=== PATIENT | female | born 1990 | race Asian ===

== ENCOUNTER 2022-06-12 01:51 | Inpatient (IN) ==
[2022-06-12] MEDS ORDERED: LIDOCAINE 1% LOCAL 20 ML VIAL INFIL PRN (02:34)
[2022-06-12] MEDS ORDERED: LACTATED RINGER'S 1,000 ML IV PRN (02:34)
[2022-06-12] MEDS ORDERED: OXYTOCIN 30 UNITS/500 ML BAG IV PRN (02:34)
[2022-06-12 03:25] LABS: Hematocrit (blood only) 36.6 % (37.0-47.0); Hemoglobin 12.2 g/dl (12.0-16.0); Mean Corpuscular Hemoglobin 31.5 pg (25.0-34.0); Mean Corpuscular Hgb Conc 33.3 g/dL (32.0-36.0); Mean Corpuscular Volume 94.6 fL (80.0-100.0); Mean Platelet Volume 9.6 fL (9.4-12.4); Platelet Count 249 K/uL (130-400); RDW Coefficient of Variation 14.6 % (11.5-14.5); RDW Standard Deviation 50.5 fL (36.4-46.3); Red Blood Count 3.87 M/uL (4.20-5.40); White Blood Count 11.03 K/ul (4.8-10.8)
[2022-06-12] MEDS ORDERED: ePHEDrine sulfate 50 MG/ML AMP ONE (03:29)
[2022-06-12] MEDS ORDERED: fentaNYL citrate PF 100 MCG/2 ML VIAL ONE (03:30)
[2022-06-12] MEDS ORDERED: LIDOCAINE 2%/EPINEPHRINE 1:200,000 20 ML PF ONE (03:30)
[2022-06-12] MEDS ORDERED: SODIUM CHLORIDE 0.9% PF INJ 10 ML VIAL ONE (03:30)
[2022-06-12] MEDS ORDERED: BUPIVACAINE 0.25% PF 30 ML VIAL ONE (03:30)
[2022-06-12] MEDS ORDERED: fentaNYL 2MCG/ML ROPIVACAINE 1.25MG/ML 100 ML BAG EPI ONE (03:30)
[2022-06-12] MEDS ORDERED: ONDANSETRON INJ 2 MG/ML 2 ML VIAL IV PRN (03:51)
[2022-06-12] MEDS ORDERED: diphenhydrAMINE 50 MG/ML VIAL IV PRN (03:51)
[2022-06-12] MEDS ORDERED: NALOXONE HCL 1 MG in SODIUM CHLORIDE 0.9% 1000ML 1,000 ML IV PRN (03:51)
[2022-06-12] MEDS ORDERED: NALOXONE HCL 0.4 MG/1 ML VIAL/CARP IV PRN (03:51)
[2022-06-12] MEDS ORDERED: NALBUPHINE HCL INJ 10 MG/ML AMP IV PRN (03:51)
[2022-06-12] MEDS ORDERED: fentaNYL 2MCG/ML ROPIVACAINE 1.25MG/ML 100 ML BAG EPI PRN (03:51)
[2022-06-12] MEDS ORDERED: ePHEDrine sulfate 50 MG/ML AMP IV PRN (03:51)
--- NOTE | 2022-06-12 03:51 | Anesthesiology Consultation ---
Date of Service June 12, 2022 Assessment & Plan ASA ASA2 Proposed Anesthesia Anesthesia Type: Labor Epidural Risk / Benefits Reviewed With: PT / POA / Parent / Guardian, Accepts Plan and Informed Consent Obtained History Height/Weight Height: 5 ft 5 in Weight: 63.503 kg Allergies Allergy/AdvReac Type Severity Reaction Status Date / Time No Known Allergies Allergy Verified 06/05/22 09:10 Medications Home Medications Medication Instructions Recorded Confirmed Last Taken prenat.vits,gary,mby-esao-frfnh 1 tab PO DAILY 11/21/21 06/12/22 Unknown Active Medications Generic Name Dose Route Start Last Admin Trade Name Freq PRN Reason Stop Dose Admin Lactated Ringer's 1,000 mls @ 125 mls/hr 06/12/22 02:34 06/12/22 03:40 Lr IV 06/14/22 02:33 125 mls/hr .Q8H PRN Infusion L&D Protocol Protocol Ropivacaine 100 ml 06/12/22 03:51 06/12/22 04:10 Fentanyl 2mcg/Ml Ropivacaine 1.25mg/Ml 100 Ml Bag EPI 06/13/22 03:50 100 ml PRN PRN Administration Pain R/T Labor Protocol Past Medical History Medical History Varicella vaccination Exercise / Class Metabolic Activity II 4-5 Yardwork/Stairs/Walk up hill Past Family History Family History Denies family history of Ovarian cancer Breast cancer Colorectal cancer Past Surgical History Surgical History No history of previous surgery Past Anesthesia History No Hx of Anesthesia Complications and No Family Hx of Anesthesia Complications History of PONV No Hx of PONV and No Hx of Motion Sickness Social History Smoking Status: Never smoker Hx Alcohol Use: No Hx Substance Use: No Review of Systems denies fever/cough/ colds/ chest pain/ SOB/ CARMEN denies CARMEN Physical Exam Vital Signs Last Vital Signs Temp 36.8 C 06/12/22 04:11 Pulse 77 06/12/22 04:16 Resp 18 06/12/22 04:11 BP 106/72 06/12/22 04:16 Pulse Ox 98 06/12/22 04:16 ENMT Mouth: no TMJ abnormality and no dentition abnormality Thyromental Distance: > or= 3.5 Finger Breadths Mallampati Class: II Neck neck extension not limited Respiratory normal respiratory effort; no respiratory distress Auscultation: lungs clear to auscultation bilaterally Cardiovascular Rate/Rhythm: regular rate and regular rhythm Neurologic moves all extremities Psychiatric Orientation: alert and oriented x 3 Testing Laboratory Results 06/12/22 02:54
--- NOTE | 2022-06-12 05:19 | Delivery Summary ---
Vaginal Delivery Summary Date of Service June 12, 2022 Vaginal Delivery Summary DIAGNOSES: 1. Harrell intrauterine at 39w3d gestation. 2. Spontaneous onset of labor. 3. Group B Streptococcus Neg. 4. Shoulder Dystocia PROCEDURE: Spontaneous vaginal delivery without laceration, requiring Serjio, Suprapubic pressure, Delivery of posterior shoulder and Wood's Screw maneuvers SURGEON: Kristina Wasserman MD. BILINGUAL TEACHER: None. ESTIMATED BLOOD LOSS: 300 mL. COMPLICATIONS: None. PLACENTA: Spontaneous and intact with a 3-vessel cord. DISPOSITION: Stable to labor and delivery. DESCRIPTION: The patient pushed well and brought the head to in DOA position. The infant's head was allowed to deliver with contraction force and no further active pushing, with the perineum protected during this time. There was a shoulder cord but no nuchal cord. The right shoulder was anterior. Once the head delivered, impaction of the shoulder was evident and no further downward movement was achieved. A shoulder dystocia was identified and help was requested to the bedside. Serjio' position was employed, and suprapubic pressure was applied from the posterior aspect of the anterior shoulder, however the shoulder was still unable to be delivered. The patient was asked to relax while I placed a hand into the posterior vagina to attempt to deliver the posterior shoulder. Movement of the posterior shoulder towards delivery did occur, but the 's body was also noted to tend to rotate in the canal during this effort. Following that motion, pressure was applied on the anterior aspect of the posterior shoulder/arm/chest to encourage the spinning, creating the Wood's Screw maneuver. This resulted in delivery of the posterior shoulder, and once the infant had rotated 180 degrees, the "new" posterior shoulder also delivered, followed by the remainder of the body. The infant was placed on the maternal abdomen. It was vigorous and moving all extremities, and making respiratory efforts. The cord was doubly clamped by the MD and then cut by the FOB. The placenta delivered spontaneously and was noted to be intact and with a 3VC. The cervix, vagina and perineum were examined and were found to be without defect requiring repair. The fundus was firm and lochia minimal immediately after delivery. [facility] Vaginal Delivery Charge Vaginal Delivery Codes: 40896 global code for the antepartum, delivery, and post-
[2022-06-12] MEDS ORDERED: HYDROCORTISONE ACETATE 25 MG SUPP PR PRN (07:13)
[2022-06-12] MEDS ORDERED: DIPHTHERIA/TETANUS/PERTUSSIS 0.5mL SYR/VIAL (Age 7+yrs) IM ONE (07:13)
[2022-06-12] MEDS ORDERED: BENZOCAINE 20% AER SPR 82.5 GM CAN EXT PRN (07:13)
[2022-06-12] MEDS ORDERED: oxyCODONE/ACETAMINOPHEN 5mg/325mg TAB PO PRN (07:13)
[2022-06-12] MEDS ORDERED: ACETAMINOPHEN 325 MG TAB PO PRN (07:13)
[2022-06-12] MEDS ORDERED: bisacodyL 10 MG SUPP PR PRN (07:13)
--- NOTE | 2022-06-12 07:33 | Anesthesia Procedure Note ---
Date of Service June 12, 2022 Anesthesia Post Epidural Note Vital Signs Vital Signs: Temp Pulse Resp BP Pulse Ox 36.7 C 67 20 103/57 L 96 06/12/22 07:15 06/12/22 07:28 06/12/22 07:15 06/12/22 07:28 06/12/22 05:11 Notes Mental Status: alert / awake / arousable and participated in evaluation Patient Amnestic to Procedure: No Nausea / Vomiting: adequately controlled Pain: adequately controlled Airway Patency, RR, SpO2: stable & adequate BP & HR: stable & adequate Hydration State: stable & adequate Neuraxial Anesthesia: was administered and sensory block is resolving Anesthetic Complications: no major complications apparent and Pt Satisfied with anesthetic care Epidural: Removed without complications and With tip intact
[2022-06-12] MEDS: PRENATAL VITAMIN 1 TAB PO SCH (08:17)
[2022-06-12] MEDS: DOCUSATE SODIUM 100 MG CAP PO SCH ×2 (08:17→20:09)
[2022-06-12] MEDS: IBUPROFEN 600 MG TAB PO PRN ×2 (09:42→20:09)
[2022-06-13 06:38] LABS: Hematocrit (blood only) 33.8 % (37.0-47.0); Hemoglobin 11.3 g/dl (12.0-16.0); Mean Corpuscular Hemoglobin 31.9 pg (25.0-34.0); Mean Corpuscular Hgb Conc 33.4 g/dL (32.0-36.0); Mean Corpuscular Volume 95.5 fL (80.0-100.0); Mean Platelet Volume 9.7 fL (9.4-12.4); Platelet Count 220 K/uL (130-400); RDW Coefficient of Variation 14.7 % (11.5-14.5); RDW Standard Deviation 51.8 fL (36.4-46.3); Red Blood Count 3.54 M/uL (4.20-5.40); White Blood Count 10.58 K/ul (4.8-10.8)
--- NOTE | 2022-06-13 06:42 | Obstetrical Progress Note ---
Date of Service <Mikey Burk DO - Last Filed: 06/13/22 06:58> June 13, 2022 Assessment & Plan <Mikey Burk DO - Last Filed: 06/13/22 06:58> (1) Spontaneous vaginal delivery: - Feels well today. Eating well, voiding well, ambulating well. - Pain well controlled with ibuprofen 600mg Q4H PRN - Routine care -- OOB, ambulation, diet progression as tolerated - After discharge will have 6 week follow-up with Dr. Wasserman. - Will d/c today. Day #:: 1 <Smita Casas, DO - Last Filed: 06/13/22 08:16> (1) Spontaneous vaginal delivery: Subjective <Mikey Burk DO - Last Filed: 06/13/22 06:58> Ambulation: ambulating normally Voiding: no voiding problems Passing Gas:: Yes Diet Tolerance:: regular diet Lochia:: Small Feeding Type:: breast feeding Current Pain Level(1-10): 0 Review of Systems Denies fever, chills, sweats Denies shortness of breath, difficulty breathing, chest pain, palpitations, chest pressure. Denies breast pain. Denies dysuria. Denies headache or changes in vision. Physical Exam <Mikey Burk DO - Last Filed: 06/13/22 06:58> General: Alert, oriented. No acute distress. Cardiac: Regular rate and rhythm, no murmurs/rubs/gallops. Respiratory: Clear to auscultation bilaterally a/p, no wheezes/rales/rhonchi. No increased work of breathing. Symmetrical chest rise. No respiratory distress. Abdomen: Soft, nontender, nondistended. Bowel sounds present. Uterus: Uterine fundus firm, palpable 1 cm below umbilicus. Lower Extremities: No lower extremity edema or swelling. No deep calf pain. Katlyn's negative bilaterally. Results & Data <Mikey Burk DO - Last Filed: 06/13/22 06:58> Vital Signs (Past 12 Hours) Vital Signs Temp Pulse Resp BP Pulse Ox O2 Del Method 06/13/22 04:05 36.4 C L 61 16 94/58 L 98 Room Air 04/26/23 23:50 36.4 C L 62 17 100/62 97 Room Air 06/12/22 20:00 36.6 C 63 16 110/74 98 Room Air <Smita Casas, - Last Filed: 06/13/22 08:16> Co-Signing Physician Notes Resident Physician Supervision Note: I was present with Dr. Burk during the history and exam. I discussed the case with the resident and agree with the findings and plan as documented in the note. Any exceptions or clarifications are listed here: PPD#2 doing well, no concerns. Reviewed DC instructions. Documented By: Smita Casas DO Resident Activity Tracking <Mikey Burk, - Last Filed: 06/13/22 06:58> Resident Involvement: Resident Care Provided Care Provided: OB Delivery
[2022-06-13] MEDS: PRENATAL VITAMIN 1 TAB PO SCH (08:16)
[2022-06-13] MEDS: DOCUSATE SODIUM 100 MG CAP PO SCH (08:16)
[2022-06-13] MEDS ORDERED: bisacodyL 5 MG TABEC PO SCH (20:00)
== END 2022-06-13 13:40 | disposition home or self-care (01) | DRG 807 ==
LOC: OPB 01:51 → 4S1 01:53 → 4E2 07:40